=== PATIENT | female | born 1960 | race Caucasian/White ===

== ENCOUNTER → 2017-11-07 10:10 | Outpatient (CLI) | payer BC, SELFPAY ==
[2017-11-07 12:56] LABS: AST(SGOT) 25 U/L (15-37); Alanine Aminotransfer ALT/SGPT 28 U/L (13-56); Anion Gap 9 (5-15); BUN 8 mg/dL (7-18); BUN/Creat Ratio 10.2 RATIO (10-20); Chloride 107 mmol/L (98-107); Cholesterol 142 mg/dL (200); Creatinine, Serum 0.78 mg/dL (0.55-1.02); EST Glomerular Filtration Rate 80 mL/min (>60); Est Glom Filt Rate - Afr Amer 97 mL/min (>60); Glucose 75 mg/dL (74-106); High Density Lipoprotein 49 mg/dL; Potassium 3.8 mmol/L (3.5-5.1); Sodium Level 141 mmol/L (136-145); Triglycerides 104 mg/dL; Very Low Density Lipoprotein 21 mg/dL (5-40)
== END ==
PROVIDERS: Family Provider Family Medicine; PCP Family Medicine; Visit Provider Family Medicine
DX: I10 Essential (primary) hypertension (principal); E78.5 Hyperlipidemia, unspecified
CPT/HCPCS: 36415; 80048; 80061; 84450; 84460

== ENCOUNTER → 2018-06-17 09:48 | Outpatient (CLI) | payer BC, SELFPAY ==
--- NOTE | 2018-06-17 10:00 | BI_ITS ---
MAMMOGRAPHY - BILATERAL SCREENING REASON FOR EXAM: Female, 57 years old. Routine annual screening examination. PERTINENT HISTORY: Aunt with breast cancer. TECHNIQUE: Digital bilateral breast lou (3D mammographic acquisition) in the CC and MLO projections. 2-D mediolateral oblique (MLO) and craniocaudad (CC) views of both breasts were obtained. CAD: Full Field Digital Mammography with Computer Added Detection was performed. COMPARISON: Comparison is made with prior study dated March 13, 2017 July 08, 2015. FINDINGS: Breast Composition: The breasts are heterogeneously dense, which may obscure small masses. There are no dominant masses or suspicious calcifications. Stable small bilateral benign appearing axillary lymph nodes. No other significant abnormalities are identified. There has been no significant change since the prior study. BI/SCREENING MAMM (CAD), BILAT IMPRESSION: Stable bilateral screening mammogram. Yearly follow-up mammogram recommended. (A) ASSESSMENT CATEGORY: BIRADS Category 2: Benign. A letter regarding these results will be sent to the patient by the facility within 30 days. Approximately 10% of breast cancers are not detected by mammography. A normal mammogram should not delay biopsy of a clinically suspicious abnormality. [id number] Electronically Signed: Jv Araya MD at 13:12 EST Tel [phone], Service support ,
== END ==
PROVIDERS: Family Provider Family Medicine; PCP Family Medicine; Referring Provider Obstetrics & Gynecology; Visit Provider Obstetrics & Gynecology
DX: Z12.31 Encounter for screening mammogram for malignant neoplasm of breast (principal)
CPT/HCPCS: 77063; 77067

== ENCOUNTER → 2018-11-11 | Outpatient (CLI) | payer BC, SELFPAY ==
[2018-11-11 12:31] LABS: BUN 6 mg/dL (7-18); Creatinine, Serum 0.76 mg/dL (0.55-1.02); Glucose 80 mg/dL (74-106)
[2018-11-11 12:32] LABS: AST(SGOT) 24 U/L (15-37); Alanine Aminotransfer ALT/SGPT 37 U/L (13-56); Anion Gap 8 (5-15); BUN/Creat Ratio 7.9 RATIO (10-20); Calcium,Total 9.1 mg/dL (8.5-10.1); Chloride 109 mmol/L (98-107); Cholesterol 167 mg/dL (200); EST Glomerular Filtration Rate 82 mL/min (>60); Est Glom Filt Rate - Afr Amer 100 mL/min (>60); High Density Lipoprotein 50 mg/dL; Potassium 3.9 mmol/L (3.5-5.1); Sodium Level 142 mmol/L (136-145); Triglycerides 185 mg/dL; Very Low Density Lipoprotein 37 mg/dL (5-40)
== END | disposition home or self-care (01) ==
LOC: MFPLAB 10:29
PROVIDERS: Family Provider Family Medicine; PCP Family Medicine; Referring Provider Family Medicine; Visit Provider Family Medicine
DX: E78.00 Pure hypercholesterolemia, unspecified (principal); I10 Essential (primary) hypertension
CPT/HCPCS: 36415; 80048; 80061; 84450; 84460

== ENCOUNTER → 2019-11-18 09:44 | Outpatient (CLI) | payer BC, SELFPAY ==
[2019-11-18 12:12] LABS: AST(SGOT) 23 U/L (15-37); Alanine Aminotransfer ALT/SGPT 26 U/L (13-56); Anion Gap 11 (5-15); BUN 12 mg/dL (7-18); BUN/Creat Ratio 14.2 RATIO (10-20); Chloride 109 mmol/L (98-107); Cholesterol 158 mg/dL (200); Creatinine, Serum 0.85 mg/dL (0.55-1.02); EST Glomerular Filtration Rate 73 mL/min (>60); Est Glom Filt Rate - Afr Amer 88 mL/min (>60); Glucose 82 mg/dL (74-106); High Density Lipoprotein 52 mg/dL; Potassium 3.9 mmol/L (3.5-5.1); Sodium Level 142 mmol/L (136-145); Triglycerides 122 mg/dL; Very Low Density Lipoprotein 24 mg/dL (5-40)
== END ==
PROVIDERS: PCP Family Medicine; Visit Provider Family Medicine
DX: E78.00 Pure hypercholesterolemia, unspecified (principal); I10 Essential (primary) hypertension
CPT/HCPCS: 36415; 80048; 80061; 84450; 84460

== ENCOUNTER 2020-05-24 10:52 | Observation (INO) | payer BC, SELFPAY ==
[2020-05-24] VITALS (9 sets, daily range): BP systolic 112–162; BP diastolic 64–89; PULSE 52–61; RESP 13–17; TEMP 36–36.9; O2SAT 97–99; BMI 30.1; BMI 30.3
--- NOTE | 2020-05-24 11:27 | EKG12_ITS ---
Test Reason : CP Blood Pressure : / mmHG Vent. Rate : 059 BPM Atrial Rate : 059 BPM P-R Int : 212 ms QRS Dur : 080 ms QT Int : 400 ms P-R-T Axes : 051 046 049 degrees QTc Int : 396 ms Sinus bradycardia with 1st degree A-V block Low voltage QRS Borderline ECG Confirmed by HONORIO SCHWARTZ, WOJCIECH ([id number]), newspaper editor managing KUSH SHRESTHA ([id number]) on 05/25/2020 1:02:50 PM Referred By: TOSHIA Confirmed By:WOJCIECH OLMEDO MD
--- NOTE | 2020-05-24 11:27 | ED.DCSUM_ITS ---
History of Present Illness Chief Complaint: Chest Pain Informant: Patient Onset: Today Activity at onset: - - woke her up at 0400 Timing: Intermittent, Lasts - about an hour Quality: Pain - severe pain Location: Left Chest - without radiation Current Severity: Gone Maximum Severity: Severe Worsened By: Nothing Relieved By: Nothing - in particular Associated Symptoms: Lightheadedness. Negative for: Nausea, Vomiting, Diaphoresis, Dyspnea, Cough, Fever, Palpitations Narrative: Patient states she has been having some mild aching in her left chest off and on the last couple days. She does not remember any of this being exertional or pleuritic. This morning she had severe left chest pain that woke her up from sleep. It was nonpleuritic and gone before being seen by her PCP this morning for this, she had an EKG in the office that appeared abnormal and as a result was sent to the ER for further evaluation. Patient states she has had no recurrence of her discomfort. She has no known history of heart disease, she is a non-smoker. She has a brother who at age 46 of a heart attack. - Past Medical History (1) Hypertension Status: Chronic (2) Hyperlipidemia Status: Chronic Past Medical History - Allergies and Home Meds Allergies/Adverse Reactions: Allergies No Known Allergies Allergy (Verified 05/24/20 10:53) Primary Care Physician: Anny Gordon MD [Primary Care Provider] - Lives: Alone Smoking Status: Unknown if ever smoked Review of Systems General: Reports: Malaise. Denies: Chills, Fever, Sweats Eyes: Denies: Visual changes - bilaterally, Diplopia ENT: Denies: Rhinorrhea, Sore throat Cardiovascular: Reports: Chest pain. Denies: Palpitations Respiratory: Denies: Dyspnea, Cough, Dyspnea on exertion Gastrointestinal: Denies: Abdominal pain, Nausea, Vomiting, Diarrhea, Melena, Hematochezia Genitourinary: Denies: Dysuria, Hematuria, Frequency Musculoskeletal: Denies: Myalgias, Back pain, Swelling, Extremity Pain Skin: Denies: Rash, Wounds Neurological: Denies: Headache, Weakness, Numbness Physical Exam Vital Signs/Narrative: Vital Signs Temp Pulse Resp BP Pulse Ox 05/24/20 10:55 96.8 F L 56 L 17 153/78 H 99 Inital Vital Signs reviewed: Yes General: Well nourished, Well developed, No Acute Distress Head: Normocephalic, Atraumatic Eyes: Perrl, EOMI ENT: Moist mucous membranes, No rhinorrhea Neck: Supple, Nontender, No JVD Cardiovascular: Regular rate, Regular rhythm, No murmurs Respiratory: No distress, CTA bilaterally, Chest nontender Abdomen: Soft, Nontender, Nondistended, Normal bowel sounds Back: Nontender, Normal Inspection Extremities: Nontender, No edema. Negative for: Calf Tenderness Skin: Normal color, No rash, No Trauma Neurological: Alert, Oriented x3, Cranial nerves II-XII grossly intact, Normal Strength, Normal Sensation, Normal Gait Psychological: Normal affect, Normal Mood Diagnostic/Tx/Re-eval Impressions Chest X-Ray 05/24/20 11:27 IMPRESSION: Hyperinflation. The lungs are clear. Electronically Signed: Jv Marshal, at 12:17 EST , Service support , 05/24/20 11:27 Chest 1 View (Portable) [RAD] Stat Laboratory Results 05/24/20 05/24/20 11:30 11:30 WBC 8.3 RBC 4.70 Hgb 14.1 Hct 44.9 MCV 95.5 MCH 30.0 MCHC 31.4 L RDW Std Deviation 45.6 H RDW Coeff of Syeda 13.0 Plt Count 257 MPV 10.9 Immature Gran % (Auto) 0.200 Neut % (Auto) 69.1 Lymph % (Auto) 23.1 [place] % (Auto) 4.7 Eos % (Auto) 2.2 Baso % (Auto) 0.7 Absolute Neuts (auto) 5.8 Absolute Lymphs (auto) 1.93 Nucleated RBC % 0 Sodium 140 Potassium 4.5 Chloride 108 H Carbon Dioxide 27.0 Anion Gap 5 BUN 8 Creatinine 0.76 Estim Creat Clear Calc 67.13 Est GFR (MDRD) Af Amer 99 Est GFR (MDRD) Non-Af 82 BUN/Creatinine Ratio 10.5 Glucose 99 Calcium 8.6 Troponin I < 0.015 - Rhythm Strip Rhythm Strip: Sinus Rhythm Rate: 60 Ectopy: None - EKG Initial EKG Interpretation: Sinus Rhythm, No Acute Injury Pattern, AV Block - 1st deg Prior: Unchanged - Compared with one earlier today in the office which appears normal 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 HEART score = 1,0,1,2,0 = 4. Patient remained pain-free. She prefers to stay in the hospital to get a stress test done sooner rather than get it as an outpatient, so will admit to observation. ED Disposition - Plan for ED Patient: Disposition: Acute Care Hospital [facility] Diagnosis: Chest pain, unspecified Referrals: Anny Gordon MD [Primary Care Provider] -
--- NOTE | 2020-05-24 11:27 | RAD_ITS ---
STUDY: X-RAY CHEST REASON FOR EXAM: Female, 59 years old. Sudden onset CP 4am this morning TECHNIQUE: Single AP portable view of the chest. COMPARISON: Comparison is made with prior study dated 09/24/2014. FINDINGS: EKG electrodes are seen. Hyperinflation. The lungs are clear. There is no demonstrated pleural abnormality. Normal size heart. Normal mediastinum and jose. Normal visualized pulmonary arteries. There is atherosclerotic calcification of the aortic arch with tortuosity. There are degenerative changes of the visualized thoracic spine. Normal visualized ribs, clavicles, and shoulders. There is no demonstrated abnormality of the visualized soft tissue structures of the upper abdomen. RAD/Chest 1 View (Portable) IMPRESSION: Hyperinflation. The lungs are clear. Electronically Signed: Jv Araya, at 12:17 EST , Service support ,
[2020-05-24 11:46] LABS: Absolute Lymphocyte Count 1.93 X10^3/uL (0.83-4.51); Absolute Neutrophil Count 5.8 X10^3/uL (2.0-7.7); Basophil# 0.06 X10^3/uL; Basophil% 0.7 % (0-1); Eosinophil# 0.18 X10^3/uL; Eosinophils% 2.2 % (0-5); Hematocrit 44.9 % (37-47); Hemoglobin 14.1 g/dL (12.0-15.0); Lymphocyte # 1.93 X10^3/ul (4.0); Lymphocyte % 23.1 % (19-41); Mean Corp Hgb Conc 31.4 g/dL (32-36); Mean Corpuscular Volume 95.5 fL (81-99); Mean Platelet Vol. 10.9 fl (6.2-12.0); Monocyte# 0.39 X10^3/uL; Monocyte% 4.7 % (0-10); NRBC Flagged by Analyzer 0 % (0-5); Neutrophil # 5.76 X10^3/uL (2.7-7.7); Neutrophil % 69.1 % (47-70); Platelet Count 257 K/mm3 (150-450); RBC Distribution Width SD 45.6 fl (35.1-43.9); White Blood Count 8.3 K/mm3 (4.4-11.0)
[2020-05-24] MEDS: 0.9% Normal Saline 1,000 ML 150 ML IV (12:00)
[2020-05-24 12:11] LABS: Anion Gap 5 (5-15); BUN 8 mg/dL (7-18); BUN/Creat Ratio 10.5 RATIO (10-20); Calcium,Total 8.6 mg/dL (8.5-10.1); Chloride 108 mmol/L (98-107); Creatinine, Serum 0.76 mg/dL (0.55-1.02); EST Glomerular Filtration Rate 82 mL/min (>60); Est Glom Filt Rate - Afr Amer 99 mL/min (>60); Estimated Creatinine Clearance 67.13 ml/min; Glucose 99 mg/dL (74-106); Potassium 4.5 mmol/L (3.5-5.1); Sodium Level 140 mmol/L (136-145)
--- NOTE | 2020-05-24 13:16 | PCM.HP.STD ---
Problem List (1) Chest pain, unspecified Status: Acute (2) Hyperlipidemia Status: Chronic (3) Hypertension Status: Chronic History of Present Illness Date of Admission: 05/24/20 Chief Complaint: Chest pain The patient is a 59 year old F with history of hypertension and dyslipidemia came to ER with sudden onset of chest pain about 4 AM today. She felt like a squeezing sensation under her left breast, localized, 5-6/10 in intensity without exacerbating or relieving factor. This lasted for about an hour. She was given 4 tablets of aspirin 81 mg by EMS. In ED, EKG shows sinus bradycardia at 59 beats per old with first-degree AV block. Patient is on atenolol 50 mg p.o. twice daily at home. First troponin negative. Initial ED lab work unremarkable. Chest x-ray shows hyperinflation, lungs clear. Past Medical History Past Medical History (Chronic Problems): Chronic Problems Hypertension (Chronic) Hyperlipidemia (Chronic) Allergies No Known Allergies Allergy (Verified 05/24/20 10:53) Home Medications: Ambulatory Orders Medication Instructions Recorded Atenolol [Tenormin (beta aminta)] 50 mg PO BID 07/01/14 Atorvastatin Calcium [Lipitor] 20 mg PO QHS 07/01/14 Lives: Alone Smoking Status: Unknown if ever smoked - *Family History Paternal History Items: Stroke - Hemorrhagic stroke and he Sibling History Items: Heart Disease - Coronary artery disease/[place] Review of Systems Constitutional: Denies: Chills, Fever, Weight Change HEENT: Denies: Head Aches, Sinus Congestion, Sinus Drainage Cardiovascular: Reports: Chest Pain, Chest Pressure. Denies: Palpitations Respiratory: Denies: Cough, Shortness of breath at rest, Sputum production Gastrointestinal: Denies: Abdominal Pain, Nausea, Vomiting Genitourinary: Denies: Dysuria, Frequency Gynecological: Reports: - - Vaginal dryness and menopausal symptoms. Denies dysuria, increased frequency/urgency or UTI-like symptoms Musculoskeletal: Denies: Joint Pain, Joint Tenderness Skin: Denies: Rash, Wounds Neurological: Denies: Numbness, Tingling, Focal weakness Psychiatric: Denies: Anxiety, Depression, Homicidal Ideations, Suicidal Ideations Hematologic/ Lymphatic: Denies: Easy Bruising, Easy Bleeding VTE Information - Inpt Only VTE Present on Admission: No VTE Mechan Device Prophylaxis: None VTE Pharm Prophylaxis ordered?: Yes Patient Problems: Active and Suspected Problems Chest pain, unspecified (Acute) - Physical Exam Vitals/I&O's: Vital Signs Temp Pulse Resp BP Pulse Ox 98.0 F 59 L 16 156/89 H 98 05/24/20 13:15 05/24/20 13:15 05/24/20 13:15 05/24/20 13:15 05/24/20 13:15 Oxygen Delivery Method Room Air Weight: 177 lb 14.609 oz Body Mass Index (BMI) 30.0 General: Alert, Oriented x3, Cooperative HEENT: Atraumatic, PERRLA, EOMI, Normocephalic Neck: Supple, No JVD, Negative Carotid Bruits Lungs: Clear to auscultation, Normal air movement, No rhonchi, No wheeze, No rales Cardiovascular: Regular Rhythm, Normal S1, Normal S2, No murmurs, Bradycardic Abdomen: Bowel Sounds Present, Soft, Non Tender Extremities: No edema, Capillary Refill Less than 3 Seconds Skin: No rashes, No breakdown Musculoskeletal: No Tenderness to Palpation of Joints or Extremities Neurological: Cranial nerves II-XII grossly intact, Deep Tendon Reflexes 2+/4 and Symmetrical, Neuro grossly intact, Motor Exam 5/5 strength throughout Psych/Mental Status: Normal Affect, Appropriate Laboratory Results 05/24/20 11:30: WBC 8.3, RBC 4.70, Hgb 14.1, Hct 44.9, MCV 95.5, MCH 30.0, MCHC 31.4 L, RDW Std Deviation 45.6 H, RDW Coeff of Syeda 13.0, Plt Count 257, MPV 10.9, Immature Gran % (Auto) 0.200, Neut % (Auto) 69.1, Lymph % (Auto) 23.1, [place] % (Auto) 4.7, Eos % (Auto) 2.2, Baso % (Auto) 0.7, Absolute Neuts (auto) 5.8, Absolute Lymphs (auto) 1.93, Nucleated RBC % 0 05/24/20 11:30: Sodium 140, Potassium 4.5, Chloride 108 H, Carbon Dioxide 27.0, Anion Gap 5, BUN 8, Creatinine 0.76, Estim Creat Clear Calc 67.13, Est GFR (MDRD) Af Amer 99, Est GFR (MDRD) Non-Af 82, BUN/Creatinine Ratio 10.5, Glucose 99, Calcium 8.6, Troponin I < 0.015 Current Medications Sodium Chloride () 1,000 mls @ 150 mls/hr IV [id number] Last Admin: 05/24/20 12:00 Dose: 150 mls/hr Documented by: Assessment/Plan All Active Problems Chest pain, unspecified (Acute) The patient is a 59 year old F with history of hypertension and dyslipidemia came to ER with sudden onset of chest pain about 4 AM today with suspicion of unstable angina. In ED, EKG shows sinus bradycardia at 59 beats per old with first-degree AV block. 1. Atypical chest pain, possible unstable angina: Patient is being admitted in PCU. Serial troponin enzymes and EKG. On school lunch monitor. If tropes negative, treadmill nuclear stress test tomorrow a.m. 2. Sinus bradycardia with first-degree AV block probably high-dose of atenolol: Hold atenolol. Patient at home on 1250 mg p.o. twice daily. 3. Hypertension: Blood pressure is elevated 159/89. Start her on the low-dose of lisinopril. 4. Dyslipidemia: Fasting profile tomorrow a.m. Continue atorvastatin 20 mg daily. VTE prophylaxis: Lovenox 40 mg daily Clinical Impression(s) from Imaging Studies Chest X-Ray 05/24/20 11:27 IMPRESSION: Hyperinflation. The lungs are clear. OBSV E&M: [id number] Initial observation care L3
--- NOTE | 2020-05-24 15:07 | EKG12_ITS ---
Test Reason : AM EKG Blood Pressure : / mmHG Vent. Rate : 057 BPM Atrial Rate : 057 BPM P-R Int : 202 ms QRS Dur : 078 ms QT Int : 416 ms P-R-T Axes : 067 051 050 degrees QTc Int : 404 ms Sinus bradycardia Low voltage QRS Borderline ECG Confirmed by HONORIO SCHWARTZ, WOJCIECH ([id number]), newspaper editor managing ALEJANDRO ORTIZ ([id number]) on 05/26/2020 1:56:11 PM Referred By: FATUMA Confirmed By:WOJCIECH OLMEDO MD
[2020-05-24 16:22] LABS: Magnesium 2.3 mg/dL (1.6-2.6)
[2020-05-24] MEDS: Lisinopril 10 MG Tablet PO (17:19)
[2020-05-24] MEDS: Atorvastatin Calcium 20 MG Tablet PO (21:34)
[2020-05-24] MEDS: Famotidine 20 MG Tablet PO (21:34)
[2020-05-25 02:25] VITALS: BP 107/58; PULSE 58; RESP 16; TEMP 37; O2SAT 96
[2020-05-25 03:00] VITALS: PULSE 53
--- NOTE | 2020-05-25 05:55 | EKG12_ITS ---
Test Reason : Blood Pressure : / mmHG Vent. Rate : 055 BPM Atrial Rate : 055 BPM P-R Int : 208 ms QRS Dur : 076 ms QT Int : 414 ms P-R-T Axes : 052 050 045 degrees QTc Int : 396 ms Sinus bradycardia Low voltage QRS Borderline ECG Confirmed by HONORIO SCHWARTZ, WOJCIECH ([id number]), art editor ALEJANDRO ORTIZ ([id number]) on 05/26/2020 1:58:31 PM Referred By: SCOTT Confirmed By:WOJCIECH OLMEDO MD
[2020-05-25 06:20] VITALS: BP 129/66; PULSE 63; RESP 17; TEMP 36.9; O2SAT 97
[2020-05-25] MEDS: Aspirin E.C. 81 MG Tablet PO (06:21)
[2020-05-25] MEDS: Lisinopril 10 MG Tablet PO (06:21)
[2020-05-25 06:51] VITALS: PULSE 65
[2020-05-25 06:51] LABS: Cholesterol 139 mg/dL (200); High Density Lipoprotein 46 mg/dL; Triglycerides 124 mg/dL; Very Low Density Lipoprotein 25 mg/dL (5-40)
[2020-05-25 07:08] VITALS: O2SAT 98
--- NOTE | 2020-05-25 09:45 | STRESSREP_ITS ---
Stress Test Report Date: 05-25-2020 Procedure: Exercise tolerance test/imaging study Indications: Chest pain; shortness of breath/dyspnea Consent: Per the patient Procedure: The patient exercised on a Keith protocol for 5 minutes completing Stage I and 2 minutes of Stage II achieving a peak heart rate of 200 bpm (125% predicted maximal heart rate) with a peak blood pressure 200/90 mmHg and a peak MET capacity of 7 METs. The baseline ECG demonstrated sinus rhythm. The peak exercise ECG demonstrated with no obvious ECG changes. The cardiac rhythm demonstrated sinus tachycardia with PACs during exercise and recovery with notation of an atrial couplets/triplets during recovery. The functional capacity was considered decreased. There was no complaint of chest discomfort during exercise or recovery. The examination was discontinued secondary to dyspnea. Impression: 1. Technically adequate (percent predicted maximal heart rate greater than 85%) exercise tolerance test 2. Peak exercise ECG with no obvious ECG changes 3. The cardiac rhythm demonstrated sinus tachycardia with PACs during exercise and recovery with notation of an atrial couplet/triplet during recovery 4. Nuclear images pending Myocardial perfusion imaging study: Technique: The patient was injected with 12.0 mCi of technetium 99m Cardiolite and subsequently rest SPECT Cardiolite nuclear imaging was obtained in the horizontal long, vertical long, and short axis views. The patient exercised on a Keith protocol for 5 minutes completing Stage I and 2 minutes of Stage II achieving a peak heart rate of 200 bpm (125% predicted maximal heart rate) with a peak blood pressure 200/90 mmHg and a peak MET capacity of 7 METs. The patient was injected with 33.8 mCi of technetium 99m Cardiolite and subsequently stress SPECT Cardiolite nuclear imaging was obtained in the horizontal long, vertical long, and short axis views. A gated Cardiolite study at peak stress was obtained. Interpretation: Rest and stress SPECT Cardiolite nuclear imaging status post realignment, normalization, and attenuation correction, demonstrates relative uniform tracer uptake and myocardial perfusion appearing within normal limits. There is end systolic thickening and brightening. The gated Cardiolite study demonstrates myocardial thickening and inward wall motion. The reported LVEF is 85%. Impression: 1. Relative uniform tracer uptake and myocardial perfusion appearing within normal limits. 2. The gated Cardiolite study reports an LVEF of 85%. This note was generated with [employer] software. It may contain incorrect words, spelling, and punctuation that were not noted in checking the note before signing.
[2020-05-25] MEDS: Famotidine 20 MG Tablet PO (10:20)
--- NOTE | 2020-05-25 11:55 | PCM.DC ---
- Discharge Diagnoses Current Active Problems: Current Active and Chronic Problems Hypertension (Chronic) Hyperlipidemia (Chronic) Chest pain, unspecified (Acute) You will use the following diet at home:: Cardiac Your food should be the consistency of: Regular Discharge Activity: Return to Normal Activity Call your doctor if you observe: Fever of 101 or Higher, Numbness or Tingling, Change in Color, Inability to urinate, Inability to have a bowel movement, Shortness of breath, Dizziness, Fainting spells, Swelling in the ankles, Chest pain, Prolonged hiccoughing, Increased palpitations (irregular heartbeat), Calf discomfort, Uncontrolled pain Additional Instructions: Hold metoprolol if heart rate is less than 60/min or systolic blood pressure less than 90 mmHg. Hold lisinopril if systolic blood pressure less than 120 mmHg Allergies/Adverse Reactions: Allergies No Known Allergies Allergy (Verified 05/24/20 10:53) Medications to take at Discharge Atorvastatin Calcium [Lipitor] 20 mg PO DAILY 07/01/14 Aspirin [Aspirin EC] 162 mg PO DAILY PRN PRN 05/24/20 Multivitamin [Multivitamins] 1 tab PO DAILY 05/24/20 Lisinopril [Zestril] 10 mg PO DAILY #30 tab 05/25/20 Metoprolol Tartrate 12.5 mg PO BID #30 tab 05/25/20 The following prescriptions were given: Metoprolol Tartrate 12.5 mg PO BID #30 tab Transmission Status: Pending to [facility] Lisinopril [Zestril] 10 mg PO DAILY #30 tab Transmission Status: Pending to [facility] Primary Care Physician: Anny Gordon MD [Primary Care Provider] - Please follow up with your Primary Care Physician in: In 2 weeks Test Results: Test results from this visit will be discussed in further detail at your follow-up appointment, if applicable.
[2020-05-25 12:01] VITALS: BP 139/75; PULSE 78; RESP 18; TEMP 36.8; O2SAT 96
--- NOTE | 2020-05-25 12:02 | DS.PCM_ITS ---
Discharge Date and Diagnosis - Problem List Patient Problems: Active and Suspected Problems Chest pain, unspecified (Acute) Date of Admission: 05/24/20 Date of Discharge: 05/25/20 - Primary Discharge Diagnosis Acute Problems: Active Problems Chest pain, unspecified (Acute) - Secondary Discharge Diagnosis Chronic Problems: Chronic Problems Hypertension (Chronic) Hyperlipidemia (Chronic) Hospital Course and Treatment Imaging Results: 05/25/20 05:55 Nuclear Stress Test - Treadmil [NM] AM (NON MEDS) Summary of Care Provided: The patient is a 59 year old F history of hypertension dyslipidemia was admitted with sudden onset of chest pain. EKG shows sinus bradycardia at 59 bpm with first-degree block mainly due to high dose of Atenol 50 mg p.o. twice daily at home. She was admitted in PCU. Beta-aminta atenolol was held. Serial troponin enzymes were negative. Repeat EKG was also similar to first EKG with no specific signs for ischemia. library monitor shows usually heart rate about 65/min with intermittent tachycardia heart rate 100-110/min. Patient had treadmill nuclear stress test and reported myocardial perfusion within normal limit. Cardiolite study EF 85 percent. Patient is being discharged home. At large discontinued. Started on low-dose metoprolol 12.5 mg p.o. twice daily with holding parameters if heart rate less than 60/min. Blood pressure is elevated therefore started on lisinopril 10 mg daily. Heart rate and blood pressure controlled Discharge medication reconciliation done. Discharge follow-up instructions completed. Discharge process discussed with the patient and all questions were answered to patient's satisfaction. Total time spent, exact 35 minutes on discharge meds reconciliation, examination, coordination of care with nurses and ancillary staff, review of imaging and blood test and discussion with the patient on follow-up instructi ons [] Patient Problems: Active and Suspected Problems Chest pain, unspecified (Acute) Objective: Seen and examined. Patient does not have any chest pain or shortness of breath. On treadmill she felt mild short of breath or chest heaviness but she was wearing mask. Physical exam General: Alert, Oriented x3, Cooperative HEENT: Atraumatic, PERRLA, EOMI, Normocephalic Oral: No Gingival or Mucosal Lesions/ Ulcerations Neck: Supple, No JVD, Negative Carotid Bruits Lungs: Air entry equal in bilateral lung bases. No crepitation/rhonchi Cardiovascular: Regular rate, Regular Rhythm, Normal S1, Normal S2, No murmurs Abdomen: Bowel Sounds Present, Soft, Non Tender, Non-Distended : No renal angle tenderness. No suprapubic tenderness. Extremities: No edema, Capillary Refill Less than 3 Seconds Skin: No rashes, No breakdown Musculoskeletal: No Tenderness to Palpation of Joints or Extremities Neurological: Cranial nerves II-XII grossly intact, Deep Tendon Reflexes 2+/4 and Symmetrical, Neuro grossly intact Psych/Mental Status: Normal Affect, Appropriate. - Physical Exam Vitals/I&O's: Vital Signs Temp Pulse Resp BP Pulse Ox 98.2 F 78 18 139/75 H 96 05/25/20 12:01 05/25/20 12:01 05/25/20 12:01 05/25/20 12:01 05/25/20 12:01 Oxygen Delivery Method Room Air Weight: 176 lb 9.6 oz Body Mass Index (BMI) 30.3 Intake and Output for Last 24 Hours 05/23/20 05/24/20 05/25/20 23:59 23:59 23:59 Intake Total 1820 / 1820 0 / 0 Output Total 250 / 250 Balance 1570 / 1570 0 / 0 Laboratory Results 05/24/20 11:30: Sodium 140, Potassium 4.5, Chloride 108 H, Carbon Dioxide 27.0, Anion Gap 5, BUN 8, Creatinine 0.76, Estim Creat Clear Calc 67.13, Est GFR (MDRD) Af Amer 99, Est GFR (MDRD) Non-Af 82, BUN/Creatinine Ratio 10.5, Glucose 99, Calcium 8.6, Troponin I < 0.015 05/24/20 11:30: Magnesium 2.3 05/24/20 16:28: Troponin I < 0.015 05/24/20 19:11: Troponin I < 0.015 05/25/20 06:00: Triglycerides 124, Cholesterol 139, LDL Cholesterol 68, VLDL Cholesterol 25, HDL Cholesterol 46 Current Medications Acetaminophen (Acetaminophen 325 Mg Tablet) 650 mg PO Q6H PRN PRN PRN Reason: Pain Score 1-10/Temp > 100.7 F Al Hydroxide/Mg Hydroxide (Mag Hydrox/Al Hydrox/Simeth 30 Ml Udc) 30 ml PO Q6H PRN PRN PRN Reason: Gastric Burning Albuterol Sulfate (Albuterol 2.5 Mg/3 Ml Vial.Neb.) 2.5 mg INHALATION Q2H PRN PRN PRN Reason: SOB/Wheezing Aspirin (Aspirin E.C. 81 Mg Tablet) 81 mg PO DAILY@0800 [facility] Last Admin: 05/25/20 06:21 Dose: 81 mg Documented by: Atorvastatin Calcium (Atorvastatin Calcium 20 Mg Tablet) 20 mg PO QHS [facility] Last Admin: 05/24/20 21:34 Dose: 20 mg Documented by: Enoxaparin Sodium (Enoxaparin 40 Mg/0.4 Ml Syringe) 40 mg SC DAILY [facility] Famotidine (Famotidine 20 Mg Tablet) 20 mg PO BID [facility] Last Admin: 05/25/20 10:20 Dose: 20 mg Documented by: Lisinopril (Lisinopril 10 Mg Tablet) 10 mg PO DAILY [facility] Last Admin: 05/25/20 06:21 Dose: 10 mg Documented by: Melatonin (Melatonin 3 Mg Tablet) 3 mg PO QHS PRN PRN PRN Reason: INSOMNIA Morphine Sulfate (Morphine 2 Mg/Ml Syringe) 2 mg IV Q3H PRN PRN PRN Reason: Pain Score 6-10 Nitroglycerin (Nitroglycerin (Inpatient Use) 0.4 Mg Tab.Subl) 0.4 mg SUBLINGUAL Q5M PRN PRN Reason: CARDIAC/CHEST PAIN Oxycodone HCl (Oxycodone 5 Mg Tablet) 5 mg PO Q4H PRN PRN PRN Reason: Pain Score 4-5 Prochlorperazine Edisylate (Prochlorperazine 10 Mg/2 Ml Vial) 5 mg IV Q4H PRN PRN PRN Reason: Breakthrough Nausea/Vomiting Psyllium Hydrophilic Mucilloid (Psyllium 1 Packet) 1 packet PO DAILY PRN PRN PRN Reason: Constipation Sodium Chloride (0.9% Saline Lock 10 Ml Syringe) 10 - 40 ml IV UD PRN PRN Reason: SALINE FLUSH Discharge Activity: Return to Normal Activity Call your doctor if you observe: Fever of 101 or Higher, Numbness or Tingling, Change in Color, Inability to urinate, Inability to have a bowel movement, Shortness of breath, Dizziness, Fainting spells, Swelling in the ankles, Chest pain, Prolonged hiccoughing, Increased palpitations (irregular heartbeat), Calf discomfort, Uncontrolled pain Home Medications: Medications to take at Discharge Atorvastatin Calcium [Lipitor] 20 mg PO DAILY 07/01/14 Aspirin [Aspirin EC] 162 mg PO DAILY PRN PRN 05/24/20 Multivitamin [Multivitamins] 1 tab PO DAILY 05/24/20 Lisinopril [Zestril] 10 mg PO DAILY #30 tab 05/25/20 Metoprolol Tartrate 12.5 mg PO BID #30 tab 05/25/20 Following Prescriptions Were Given to Patient: Metoprolol Tartrate 12.5 mg PO BID #30 tab Transmission Status: Pending to [facility] Lisinopril [Zestril] 10 mg PO DAILY #30 tab Transmission Status: Pending to [facility] Primary Care Physician: Anny Gordon MD [Primary Care Provider] - Please follow up with your Primary Care Physician in: In 2 weeks Medical Necessity - Tobacco Use Smoking Status: Unknown if ever smoked Tobacco Use: Non-smoker Meaningful Use Info Meaningful Use Diagnoses (Choose all that apply): None applicable OBSV E&M: 16380 Observation care discharge
== END 2020-05-25 12:37 | disposition home health service (06) ==
LOC: ED 11:37 → PCU 13:21
PROVIDERS: Admitting Provider Internal Medicine; Emergency Provider Emergency Medicine; PCP Family Medicine; Visit Provider Internal Medicine
DX: R07.89 Other chest pain (principal); R42 Dizziness and giddiness; Z82.49 Family history of ischemic heart disease and other diseases of the circulatory system; I10 Essential (primary) hypertension; E78.5 Hyperlipidemia, unspecified; Z79.899 Other long term (current) drug therapy; Z79.82 Long term (current) use of aspirin; I44.0 Atrioventricular block, first degree; R00.1 Bradycardia, unspecified
CPT/HCPCS: 36415; 71045; 78452; 80048; 80061; 83735; 84484; 85025; 93005; 93017; 96360; 96361; 99218; 99285; A9500; J7030; A4216; G0378

== ENCOUNTER → 2020-06-22 15:07 | Outpatient (CLI) | payer BC, SELFPAY ==
[2020-05-24 14:37] VITALS: BMI 30.3
--- NOTE | 2020-06-22 15:19 | BI_ITS ---
MAMMOGRAPHY - BILATERAL SCREENING REASON FOR EXAM: Female, 59 years old. Routine annual screening examination. PERTINENT HISTORY: Aunt with breast cancer. TECHNIQUE: Digital bilateral breast harpreet (3D mammographic acquisition) in the CC and MLO projections. 2-D mediolateral oblique (MLO) and craniocaudad (CC) views of both breasts were obtained. CAD: Full Field Digital Mammography with Computer Added Detection was performed. COMPARISON: Comparison is made with prior study dated 06/17/2018 and 03/13/2017. FINDINGS: Breast Composition: The breasts are heterogeneously dense, which may obscure small masses. There are no dominant masses or suspicious calcifications. Stable benign-appearing bilateral axillary lymph nodes. No other significant abnormalities are identified. There has been no significant change since the prior study. BI/SCREEN MAMM (CAD) W/HARPREET BILAT IMPRESSION: Stable bilateral screening mammogram. Yearly follow-up mammogram recommended. (A) ASSESSMENT CATEGORY: BIRADS Category 2: Benign. A letter regarding these results will be sent to the patient by the facility within 30 days. Approximately 10% of breast cancers are not detected by mammography. A normal mammogram should not delay biopsy of a clinically suspicious abnormality. [id number] Electronically Signed: Jv Araya, at 15:58 EST , Service support ,
== END ==
PROVIDERS: PCP Family Medicine; Referring Provider Obstetrics & Gynecology; Visit Provider Obstetrics & Gynecology
DX: Z12.31 Encounter for screening mammogram for malignant neoplasm of breast (principal)
CPT/HCPCS: 77063; 77067

== ENCOUNTER → 2020-11-16 10:03 | Outpatient (CLI) | payer BC, SELFPAY ==
[2020-05-24 14:37] VITALS: BMI 30.3
[2020-11-16 12:46] LABS: AST(SGOT) 14 U/L (15-37); Alanine Aminotransfer ALT/SGPT 21 U/L (13-56); Anion Gap 6 (5-15); BUN 12 mg/dL (7-18); BUN/Creat Ratio 14.8 RATIO (10-20); Calcium,Total 9.3 mg/dL (8.5-10.1); Chloride 107 mmol/L (98-107); Cholesterol 159 mg/dL (200); Creatinine, Serum 0.81 mg/dL (0.55-1.02); EST Glomerular Filtration Rate 76 mL/min (>60); Est Glom Filt Rate - Afr Amer 92 mL/min (>60); Glucose 86 mg/dL (74-106); High Density Lipoprotein 51 mg/dL; Potassium 3.7 mmol/L (3.5-5.1); Sodium Level 139 mmol/L (136-145); Triglycerides 143 mg/dL; Very Low Density Lipoprotein 29 mg/dL (5-40)
== END ==
PROVIDERS: PCP Family Medicine; Referring Provider Family Medicine; Visit Provider Family Medicine
DX: I10 Essential (primary) hypertension (principal); E78.00 Pure hypercholesterolemia, unspecified
CPT/HCPCS: 36415; 80048; 80061; 84450; 84460

== ENCOUNTER → 2021-07-07 10:43 | Outpatient (CLI) | payer BC, SELFPAY ==
--- NOTE | 2021-07-07 11:02 | BD_ITS ---
STUDY: DUAL ENERGY X-RAY ABSORPTIOMETRY / DXA REASON FOR EXAM: Female, 60 years old. [id number]. Patient is postmenopausal. TECHNIQUE: Bone Mineral Density (BMD) measurements of lumbar spine and bilateral hips were obtained. COMPARISON: None. FINDINGS: Lumbar Spine (L1-L4): g/cm2 (0.995) / T-score (-0.5) / Z-score (1.1) Findings are suggestive of normal bone density with a low fracture risk. Left Femur Total: g/cm2 (0.685) / T-score (-2.1) / Z-score (-1.0) Left Femoral Neck: g/cm2 (0.607) / T-score (-2.2) / Z-score (-0.8) Right Femur Total: g/cm2 (0.686) / T-score (-2.1) / Z-score (-1.0) Right Femoral Neck: g/cm2 (0.597) / T-score (-2.3) / Z-score (-0.9) BD/Dexa Bone Density Study IMPRESSION: The patient is considered osteopenic as outlined below according to World [employer] Organization (WHO) criteria with a high fracture risk. Reference Information: The T-score is the number of standard deviations above or below the standard which is normal for young adults at their peak bone mineral density. The World Health Organization (WHO) interprets the T-scores as follows: Above -1 Normal bone density Between -1 and -2.5 Osteopenia Equal to / or below -2.5 Osteoporosis As a practical clinical guideline, osteopenia may be graded as follows: Mild -1 through -1.5 Moderate -1.6 through -2.0 Severe -2.1 through -2.4 The Z-score is the number of standard deviations above or below age-matched controls. A Z-score of less than -1.5 would be considered abnormal. References: 1. NIH Osteoporosis and Related Bone Diseases www osteo.org 2. International Society for Clinical Densitometry www iscd.org 3. National Osteoporosis Foundation www nof.org Electronically Signed: Jv Araya MD at 10:57 EST , Service support ,
== END ==
PROVIDERS: PCP Family Medicine; Visit Provider Family Medicine
DX: N95.9 Unspecified menopausal and perimenopausal disorder (principal)
CPT/HCPCS: 77080

== ENCOUNTER 2021-10-10 09:54 | Outpatient (CLI) | payer BC, SELFPAY ==
--- NOTE | 2021-10-10 09:57 | BI_ITS ---
MAMMOGRAPHY - BILATERAL SCREENING REASON FOR EXAM: Female, 61 years old. Routine annual screening examination. PERTINENT HISTORY: Aunt with breast cancer. TECHNIQUE: Digital bilateral breast harpreet (3D mammographic acquisition) in the CC and MLO projections. 2-D mediolateral oblique (MLO) and craniocaudad (CC) views of both breasts were obtained. CAD: Full Field Digital Mammography with Computer Added Detection was performed. COMPARISON: Comparison is made with prior study dated 06/22/2020 and 06/17/2018. FINDINGS: Breast Composition: The breasts are heterogeneously dense, which may obscure small masses. There are no dominant masses or suspicious calcifications. Stable benign-appearing bilateral axillary lymph nodes. No other significant abnormalities are identified. There has been no significant change since the prior study. BI/SCRN MAMM (CAD)W/HARPREET BILAT IMPRESSION: Stable bilateral screening mammogram. Yearly follow-up mammogram recommended. (A) ASSESSMENT CATEGORY: BIRADS Category 2: Benign. A letter regarding these results will be sent to the patient by the facility within 30 days. Approximately 10% of breast cancers are not detected by mammography. A normal mammogram should not delay biopsy of a clinically suspicious abnormality. [id number] Electronically Signed: Jv Araya MD at 10:48 EDT ,
== END 2021-10-10 23:59 | disposition home or self-care (01) ==
LOC: OPBD 09:55
PROVIDERS: PCP Family Medicine; Visit Provider Family Medicine
DX: Z12.31 Encounter for screening mammogram for malignant neoplasm of breast (principal)
CPT/HCPCS: 77063; 77067

== ENCOUNTER → 2021-11-15 | Outpatient (CLI) | payer BC, SELFPAY ==
[2021-11-15 13:27] LABS: AST(SGOT) 17 U/L (15-37); Alanine Aminotransfer ALT/SGPT 24 U/L (13-56); Anion Gap 7 (5-15); BUN 12 mg/dL (7-18); BUN/Creat Ratio 16.2 RATIO (10-20); Calcium,Total 9.2 mg/dL (8.5-10.1); Chloride 108 mmol/L (98-107); Cholesterol 147 mg/dL (200); Creatinine, Serum 0.74 mg/dL (0.55-1.02); EST Glomerular Filtration Rate 84 mL/min (>60); Est Glom Filt Rate - Afr Amer 101 mL/min (>60); Glucose 92 mg/dL (74-106); High Density Lipoprotein 54 mg/dL; Sodium Level 140 mmol/L (136-145); Triglycerides 97 mg/dL; Very Low Density Lipoprotein 19 mg/dL (5-40)
== END | disposition home or self-care (01) ==
LOC: MFPLAB 09:49
PROVIDERS: PCP Family Medicine; Referring Provider Family Medicine; Visit Provider Family Medicine
DX: I10 Essential (primary) hypertension (principal); E78.00 Pure hypercholesterolemia, unspecified
CPT/HCPCS: 36415; 80048; 80061; 84450; 84460

== ENCOUNTER → 2022-11-21 | Outpatient (CLI) | payer BC, SELFPAY ==
[2022-11-21 13:10] LABS: AST(SGOT) 21 U/L (15-37); Alanine Aminotransfer ALT/SGPT 28 U/L (13-56); Anion Gap 8 (5-15); BUN 11 mg/dL (7-18); BUN/Creat Ratio 13.3 RATIO (10-20); Calcium,Total 9.3 mg/dL (8.5-10.1); Chloride 110 mmol/L (98-107); Cholesterol 156 mg/dL (200); Creatinine, Serum 0.83 mg/dL (0.55-1.02); EST Glomerular Filtration Rate 74 mL/min (>60); Est Glom Filt Rate - Afr Amer 89 mL/min (>60); Glucose 104 mg/dL (74-106); High Density Lipoprotein 52 mg/dL; Potassium 3.8 mmol/L (3.5-5.1); Sodium Level 141 mmol/L (136-145); Triglycerides 106 mg/dL; Very Low Density Lipoprotein 21 mg/dL (5-40)
== END | disposition home or self-care (01) ==
LOC: MFPLAB 09:51
PROVIDERS: PCP Family Medicine; Visit Provider Family Medicine
DX: E78.00 Pure hypercholesterolemia, unspecified (principal); I10 Essential (primary) hypertension
CPT/HCPCS: 36415; 80048; 80061; 84450; 84460

== ENCOUNTER → 2022-12-14 | Outpatient (CLI) | payer BC, SELFPAY ==
--- NOTE | 2022-12-14 14:09 | BI_ITS ---
MAMMOGRAPHY - BILATERAL SCREENING REASON FOR EXAM: Female, 62 years old. Routine annual screening examination. PERTINENT HISTORY: Aunt with breast cancer. TECHNIQUE: Digital bilateral breast harpreet (3D mammographic acquisition) in the CC and MLO projections. 2-D mediolateral oblique (MLO) and craniocaudad (CC) views of both breasts were obtained. CAD: Full Field Digital Mammography with Computer Added Detection was performed. COMPARISON: Comparison is made with prior study dated October 10, 2021 and June 22, 2020. FINDINGS: Breast Composition: The breasts are heterogeneously dense, which may obscure small masses. There are no dominant masses or suspicious calcifications. Stable small benign appearing bilateral axillary lymph nodes. No other significant abnormalities are identified. There has been no significant change since the prior study. BI/SCRN MAMM (CAD)W/HARPREET BILAT IMPRESSION: Stable bilateral screening mammogram. Yearly follow-up mammogram recommended. (A) ASSESSMENT CATEGORY: BIRADS Category 2: Benign. A letter regarding these results will be sent to the patient by the facility within 30 days. Approximately 10% of breast cancers are not detected by mammography. A normal mammogram should not delay biopsy of a clinically suspicious abnormality. [id number] Electronically Signed: Jv Araya MD at 14:53 EDT ,
== END | disposition home or self-care (01) ==
LOC: OPBI 14:07
PROVIDERS: PCP Family Medicine; Referring Provider Family Medicine; Visit Provider Family Medicine
DX: Z12.31 Encounter for screening mammogram for malignant neoplasm of breast (principal); Z80.3 Family history of malignant neoplasm of breast
CPT/HCPCS: 77063; 77067

== ENCOUNTER → 2023-11-20 | Outpatient (CLI) | payer MEDICARE, OTHER, SELFPAY ==
[2023-11-20 13:08] LABS: Protein, Urine (Random) < 6.0 mg/dL (<11.9)
[2023-11-20 13:21] LABS: AST(SGOT) 19 U/L (15-37); Alanine Aminotransfer ALT/SGPT 25 U/L (13-56); Anion Gap 4 (5-15); BUN 9 mg/dL (7-18); BUN/Creat Ratio 10.8 RATIO (10-20); Calcium,Total 9.2 mg/dL (8.5-10.1); Chloride 108 mmol/L (98-107); Cholesterol 129 mg/dL (200); Creatinine, Serum 0.84 mg/dL (0.55-1.02); EST Glomerular Filtration Rate 73 mL/min (>60); Est Glom Filt Rate - Afr Amer 88 mL/min (>60); Glucose 98 mg/dL (74-106); High Density Lipoprotein 44 mg/dL; Potassium 3.9 mmol/L (3.5-5.1); Sodium Level 139 mmol/L (136-145); Triglycerides 88 mg/dL; Very Low Density Lipoprotein 18 mg/dL (5-40)
== END | disposition home or self-care (01) ==
LOC: MFPLAB 09:37
PROVIDERS: PCP Family Medicine; Visit Provider Family Medicine
DX: I10 Essential (primary) hypertension (principal); E78.00 Pure hypercholesterolemia, unspecified
CPT/HCPCS: 36415; 80048; 80061; 82570; 84156; 84450; 84460

== ENCOUNTER → 2024-03-31 | Outpatient (CLI) | payer MEDICARE, OTHER, SELFPAY ==
--- NOTE | 2024-03-31 15:06 | BI_ITS ---
MAMMOGRAPHY - BILATERAL SCREENING REASON FOR EXAM: Female, 63 years old. Routine annual screening examination. PERTINENT HISTORY: Aunt with breast cancer. TECHNIQUE: Digital bilateral breast harpreet (3D mammographic acquisition) in the CC and MLO projections. 2-D mediolateral oblique (MLO) and craniocaudad (CC) views of both breasts were obtained. CAD: Full Field Digital Mammography with Computer Added Detection was performed. COMPARISON: Comparison is made with prior study dated December 14, 2022 and October 10, 2021. FINDINGS: Breast Composition: The breasts are heterogeneously dense, which may obscure small masses. Focal area of architectural distortion is seen in the upper aspect of the left breast on the mediolateral oblique view. This is faintly seen in the slightly lateral portion of the left breast on the craniocaudad view. Stable small benign-appearing bilateral axillary lymph nodes. No other significant abnormalities are identified. BI/SCRN MAMM (CAD)W/HARPREET BILAT IMPRESSION: Focal area of architectural distortion in the upper slightly lateral aspect of the left breast as described. The patient will be recalled for compression spot views and 90 degree lateral view. ASSESSMENT CATEGORY: BIRADS Category 0: Incomplete. Need additional imaging evaluation. A letter regarding these results will be sent to the patient by the facility within 30 days. Approximately 10% of breast cancers are not detected by mammography. A normal mammogram should not delay biopsy of a clinically suspicious abnormality. [id number] Electronically Signed: Jv Araya MD at 8:39 EDT ,
== END | disposition home or self-care (01) ==
LOC: OPBI 15:06
PROVIDERS: PCP Family Medicine; Referring Provider Family Medicine; Visit Provider Family Medicine
DX: Z12.31 Encounter for screening mammogram for malignant neoplasm of breast (principal); Z80.3 Family history of malignant neoplasm of breast
CPT/HCPCS: 77063; 77067

== ENCOUNTER → 2024-04-03 | Outpatient (CLI) | payer MEDICARE, OTHER, SELFPAY ==
--- NOTE | 2024-04-03 14:20 | US_ITS ---
STUDY: ULTRASOUND BREAST - LEFT REASON FOR EXAM: Female, 63 years old. Abnormal screening mammogram. TECHNIQUE: Axial and longitudinal images of the LEFT breast were performed with a high resolution ultrasound transducer. # OF IMAGES: 44 COMPARISON: Comparison is made with prior mammograms in earlier today and March 31, 2024. FINDINGS: LEFT Breast: The upper aspect of the left breast was examined with ultrasound. There is a 6 mm x 6 mm x 3 mm hypoechoic nodule at the 12:00 position of the breast at 4 cm from the nipple. Vascularity is seen. Tissue diagnosis recommended. There is a 4 mm x 4 mm x 2 mm cyst at the 12:00 position of the breast at 3 cm from the nipple. US/Breast Limited Unilateral IMPRESSION: 6 mm x 6 mm x 3 mm hypoechoic lesion with increased vascularity at the 12:00 position of the breast at 4 cm from the nipple. Biopsy recommended. ASSESSMENT CATEGORY: BIRADS Category 4: Suspicious - Biopsy Should Be Considered. A letter regarding these results will be sent to the patient by the facility within 30 days. Electronically Signed: Jv Araya MD at 7:39 EDT ,
--- NOTE | 2024-04-03 14:20 | BI_ITS ---
MAMMOGRAPHY - UNILATERAL DIAGNOSTIC: LEFT BREAST REASON FOR EXAM: Female, 63 years old. Abnormal screening mammogram. PERTINENT HISTORY: Aunt with breast cancer. TECHNIQUE: Compression spot views of the left breast in mediolateral leak and craniocaudad projections were obtained. CAD: Full Field Digital Mammography with Computer Added Detection was performed. COMPARISON: Comparison is made with prior study dated March 31, 2024. FINDINGS: Breast Composition: The breasts are heterogeneously dense, which may obscure small masses. There are no dominant masses or suspicious calcifications. The previously seen focal area of the architectural distortion is not seen as well at this time. It most likely represents superimposition of tissue. Correlation with targeted ultrasound recommended. No other significant abnormalities are identified. BI/DIAG MAMM W/CAD, UNILAT IMPRESSION: Negative unilateral diagnostic mammogram. Targeted sonographic correlation recommended. ASSESSMENT CATEGORY: BIRADS Category 0: Incomplete. Need additional imaging evaluation. A letter regarding these results will be sent to the patient by the facility within 30 days. Approximately 10% of breast cancers are not detected by mammography. A normal mammogram should not delay biopsy of a clinically suspicious abnormality. Electronically Signed: Jv Araya MD at 7:37 EDT ,
== END | disposition home or self-care (01) ==
LOC: OPBI 14:18
PROVIDERS: PCP Family Medicine; Referring Provider Family Medicine; Visit Provider Family Medicine
DX: R92.8 Other abnormal and inconclusive findings on diagnostic imaging of breast (principal)
CPT/HCPCS: 76642; 77065

== ENCOUNTER → 2024-04-15 | Outpatient (CLI) | payer MEDICARE, OTHER, SELFPAY ==
--- NOTE | 2024-04-15 12:27 | US_ITS ---
STUDY: ULTRASOUND BREAST - LEFT REASON FOR EXAM: Female, 63 years old. Patient is scheduled for left breast biopsy. TECHNIQUE: Axial and longitudinal images of the LEFT breast were performed with a high resolution ultrasound transducer. # OF IMAGES: 6 COMPARISON: Comparison is made with prior sonogram dated April 03, 2024. FINDINGS: LEFT Breast: No suspicious lesion is seen. Biopsy is not performed. US/Breast Limited Unilateral IMPRESSION: Biopsy not performed. No suspicious nodule is seen. ASSESSMENT CATEGORY: BIRADS Category 2: Benign. A letter regarding these results will be sent to the patient by the facility within 30 days. Electronically Signed: Jv Araya MD at 11:09 EDT ,
--- NOTE | 2024-04-15 13:18 | PN_ITS ---
Progress Note Patient is a 63-year-old female who was recently found to have an abnormality in the left breast at the 12 o'clock position on ultrasound. She presents today for biopsy of this lesion.. digital cartographic technician spent a considerable amount of time trying to recreate the abnormality originally seen. This was reproduced successfully however further investigation based on appearance as well as vascular flow seem to indicate this may be more of a lymph node or breast tissue rather than a true suspicious abnormality. These images obtained today were sent to the radiologist for further reevaluation. He agreed that this is likely not suspicious and does not warrant biopsy. This discussion was carried out in front of the patient and we discussed her options. She is okay with foregoing biopsy. We discussed the importance to continue with yearly mammography and monthly self examinations. All are in agreement with this plan. Follow-up with me will be as needed.
== END | disposition home or self-care (01) ==
LOC: US 12:27
PROVIDERS: PCP Family Medicine; Referring Provider Surgery; Visit Provider Surgery
DX: R92.8 Other abnormal and inconclusive findings on diagnostic imaging of breast (principal)
CPT/HCPCS: 76642

== ENCOUNTER → 2024-09-26 | Outpatient (CLI) | payer MEDICARE, OTHER, SELFPAY ==
[2024-09-26 13:16] LABS: Protein, Urine (Random) 24.5 mg/dL (0.0-12.0); Protein:Creat Ratio 99 mg/g CRE (0-200)
[2024-09-26 13:25] LABS: AST(SGOT) 21 U/L (<=31); Alanine Aminotransfer ALT/SGPT 17 U/L (<=34); Anion Gap 12 (5-15); BUN 14 mg/dL (4-19); BUN/Creat Ratio 18.2 RATIO (10-20); Calcium 9.5 mg/dL (7.6-11.0); Calcium,Total 9.5 mg/dL (7.6-11.0); Carbon Dioxide 23.7 mmol/L (21.0-32.0); Chloride 105 mmol/L (98-108); Creatinine, Serum 0.75 mg/dL (0.70-1.20); EST Glomerular Filtration Rate 87 (>60); Glucose 98 mg/dL (70-99); Sodium Level 141 mmol/L (133-145)
[2024-09-26 16:12] LABS: Cholesterol 140 mg/dL (<=200); High Density Lipoprotein 52 mg/dL; Low Density Lipoprotein Calc. 69 mg/dL; Triglycerides 97 mg/dL; Very Low Density Lipoprotein 19 mg/dL (5-40)
== END | disposition home or self-care (01) ==
LOC: MFPLAB 09:58
PROVIDERS: PCP Family Medicine; Referring Provider Family Medicine; Visit Provider Family Medicine
DX: I10 Essential (primary) hypertension (principal); M85.80 Other specified disorders of bone density and structure, unspecified site; E78.00 Pure hypercholesterolemia, unspecified
CPT/HCPCS: 36415; 80048; 80061; 82310; 82570; 84156; 84443; 84450; 84460

== ENCOUNTER 2025-05-25 07:46 | Emergency (ER) | payer MEDICARE, OTHER, SELFPAY ==
[2025-05-25] VITALS (10 sets, daily range): BP systolic 122–146; BP diastolic 64–87; PULSE 61–100; RESP 5–17; TEMP 36.6–36.8; O2SAT 96–99; BMI 30.6
--- NOTE | 2025-05-25 08:22 | EKG12_ITS ---
Test Reason : Blood Pressure : */* mmHG Vent. Rate : 62 BPM Atrial Rate : 62 BPM P-R Int : 206 ms QRS Dur : 78 ms QT Int : 390 ms P-R-T Axes : 55 63 37 degrees QTcB Int : 395 ms Normal sinus rhythm Low voltage QRS Borderline ECG Confirmed by JESSICA ZAMORA MD ([id number]), assignment desk editor ILIR LEUNG ([id number]) on 05/26/2025 12:16:10 PM Referred By: Confirmed By: JESSICA ZAMORA MD
--- NOTE | 2025-05-25 08:27 | RAD_ITS ---
PROCEDURE: CHEST 1 VIEW (PORTABLE) 05/25/2025 REASON FOR EXAM: CHEST PAIN TECHNIQUE: Frontal view of the chest. COMPARISON: May 24, 2020. FINDINGS: Hardware: EKG electrodes are seen. Heart: Heart size upper limits of normal. Lungs: The lungs are clear. Bones: Degenerative changes are identified within the thoracic spine. RAD/Chest 1 View (Portable) IMPRESSION: Heart size is upper limits of normal. Hyperinflation. The lungs are clear. Stable examination. Reading Location: [id number]
[2025-05-25 08:39] LABS: Hematocrit 40.6 % (37-47); Hemoglobin 13.8 g/dL (12.0-15.0); Immature Granulocytes Count 0.050 X10^3/uL (0.0-0.0); Mean Corp Hgb Conc 34.0 g/dL (32-36); Mean Corpuscular Volume 90.8 fL (81-99); Mean Platelet Vol. 10.3 fl (6.2-12.0); NRBC Flagged by Analyzer 0 % (0-5); Platelet Count 252 K/mm3 (150-450); RBC Distribution Width CV 12.9 % (11.6-14.6); RBC Distribution Width SD 42.9 fl (35.1-43.9); Red Blood Count 4.47 M/mm3 (4.2-5.4); White Blood Count 12.0 K/mm3 (4.4-11.0)
--- NOTE | 2025-05-25 08:51 | ED.VIS.CHEST ---
HPI History of Present Illness Chief Complaint: Chest Pain Detail of Chief Complaint: Chest pain and not feeling right Informant: patient Narrative Narrative: Patient presents to the emergency department complaint of some chest discomfort that she developed last evening. She had just finished eating and was sitting on the couch when she began just not feeling well and had some tightness or discomfort over her left chest. Patient laid on the floor and she thinks she eventually fell asleep but woke up about an hour later and felt fine. Patient does not have any heart history. She does not know if she was having anxiety possibly because her cousin recently as well as her dog. Patient also was told recently she needed a biopsy after a mammogram. Currently not having any chest pain. She denies exertional symptoms. There is a significant family history of heart disease and that her 1 brother in his 40s of a myocardial infarction and then had another brother in his 60s. [facility] Medical History (Updated 05/25/25 @ 11:[address] Musa Quinonez DO) Abnormal mammogram of left breast Hypertension Hyperlipidemia Chest pain, unspecified Home Medications Medication Instructions Recorded Last Taken Type atorvastatin 20 mg tablet 20 mg PO DAILY cholesterol 07/01/14 05/24/25 History multivitamin 1 tab PO DAILY supplement 05/24/20 05/24/25 History alendronate 70 mg tablet 70 mg PO QWEEK 04/07/24 05/18/25 History losartan 25 mg tablet 25 mg PO QDAY 04/07/24 05/25/25 History aspirin 81 mg tablet,delayed 162 mg PO DAILY PRN fever or pain 05/25/25 05/24/25 History release (Adult Low Dose Aspirin) metoprolol succinate 25 mg 12.5 mg PO Q12H 05/25/25 05/25/25 History tablet,extended release 24 hr Allergy/AdvReac Type Severity Reaction Status Date / Time No Known Allergies Allergy Verified 05/25/25 07:48 Family History Brother Asthma Arthritis Aunt Breast cancer Father Hypertension Mother Hypertension Surgical History History of excision of lesion History of dilation and curettage History of tubal ligation Social History Smoking Status: Never smoker alcohol intake: never substance use type: does not use ROS ROS ED Review of Systems ROS Unobtainable: other Constitutional Constitutional ED: Reports lethargy; Denies chills, fever(s), sweats or weight loss Eyes Eyes: Denies blurry vision, change in vision or diplopia ENT ENT ED: Denies rhinorrhea or sore throat Cardiovascular Cardiovascular: Reports chest pain; Denies orthopnea or racing heartbeat Respiratory/Chest Respiratory/Chest: Denies cough, dyspnea, dyspnea on exertion, orthopnea or sputum Gastrointestinal Gastrointestinal: Denies abdominal pain, diarrhea, nausea or vomiting Genitourinary Genitourinary ED: Denies dysuria, hematuria or urinary frequency Musculoskeletal Musculoskeletal: Denies arthralgias, back pain, myalgias or neck pain Integumentary Denies abscess, Abrasions or rash Neurologic Neurologic: Denies headache(s) or weakness Psychiatric Psychiatric: Denies anxiety, depression or suicidal thoughts Endocrine Endocrinology: Denies polydipsia, polyphagia or polyuria Hematologic/Lymphatic Hematologic/Lymphatic: Denies easy bleeding, easy bruising or lymphadenopathy Allergic/Immunologic Allergic/Immunologic ED: Denies mouth swelling, tongue swelling or urticaria EXAM Physical Exam Const Vital Signs: 05/25/25 07:48 05/25/25 08:22 05/25/25 08:30 Temperature 98.3 F Temperature Source Oral Pulse Rate 85 71 Respiratory Rate 16 15 Blood Pressure 145/87 H Blood Pressure Mean 106 Pulse Ox 97 99 97 Oxygen Delivery Method Room Air Room Air 05/25/25 08:33 05/25/25 09:00 05/25/25 09:45 Temperature Temperature Source Pulse Rate 68 64 100 Respiratory Rate 17 5 L 10 L Blood Pressure 146/75 H 142/77 H 127/75 H Blood Pressure Mean 95 96 91 Pulse Ox 98 97 96 Oxygen Delivery Method 05/25/25 10:00 05/25/25 10:30 05/25/25 11:00 Temperature Temperature Source Pulse Rate 66 63 61 Respiratory Rate 11 L 11 L 12 Blood Pressure 134/74 H 141/72 H 141/65 H Blood Pressure Mean 93 90 86 Pulse Ox 98 98 97 Oxygen Delivery Method Positive well nourished and well developed General Appearance ED: well developed and NAD HEENT Reports TM's clear and moist mucous membranes normocephalic and atraumatic; Negative for trauma or tenderness Tympanic Membrane ED: Yes TM's clear Eyes PERRL and EOMs intact bilaterally General Eye ED: Negative for pale conjunctiva or scleral icterus Neck no lymphadenopathy, supple and no JVD General: Negative for tenderness Chest Wall inspection of chest normal and palpation of chest normal Chest: Negative for tenderness Resp normal respiratory effort and clear to auscultation bilaterally Effort and Inspection: Negative for respiratory distress or pain with movement Auscultation: Negative for rhonchi, wheezes or diminished lung sounds Cardio regular rate, regular rhythm, S1 normal heart sound, S2 normal heart sound and no murmurs Peripheral Pulses: pulses 2+ throughout GI normal to inspection, nondistended, normoactive bowel sounds, soft to palpation, non-tender, non-distended and no masses Back/Spine no CVA tenderness and no thoracic nor lumbar tenderness Extremity normal to inspection General Extremety ED: Negative for edema General Extremity: Negative for edema Neuro oriented x3, CN's II-XII intact bilaterally, no sensory deficits noted and gait normal Sensorium / Orientation: awake, alert, oriented to person, oriented to place and oriented to time Motor Exam: strength 5/5 throughout and strength abnormal Psych mental status grossly normal Skin no rashes or lesions noted and no wounds Heart Score History: Slightly/Non-Suspicious ECG: Normal Age: >/= 65 years Risk Factors: 1 or 2 Risk Factors Troponin: </= Normal Limit Score: 3 MDM MDM MDM Narrative Medical decision making narrative: Patient presents with vague complaint of some chest discomfort. She has had increased stressors in her life. Clinically she looks well. Currently not having chest pain. EKG obtained arrival showed a sinus rhythm with rate of 62 bpm with no acute ST segment changes. CBC with a showed a slightly elevated white count 12.0 with hemoglobin of 13.8 and platelet count of 252. Chemistries unremarkable. First troponin was 6 and 2-hour delta troponin was less than 6. Patient has had no exertional symptoms at home. Low suspicion for acute coronary syndrome. Patient has a heart score of 3. I feel she can have outpatient follow-up. Recommend she return if exertional symptoms, worsening chest pain or shortness of breath, or condition worsen anyway. Lab Data Attestation: I reviewed the patient's lab results. Labs: Laboratory Results - last 24 hr 05/25/25 05/25/25 08:30 10:29 WBC 12.0 H RBC 4.47 Hgb 13.8 Hct 40.6 MCV 90.8 MCH 30.9 MCHC 34.0 RDW Std Deviation 42.9 RDW Coeff of Syeda 12.9 Plt Count 252 MPV 10.3 Immature Gran % (Auto) 0.400 Neut % (Auto) 78.4 H Lymph % (Auto) 15.9 L [place] % (Auto) 4.5 Eos % (Auto) 0.4 Baso % (Auto) 0.4 Absolute Neuts (auto) 9.4 H Absolute Lymphs (auto) 1.91 Nucleated RBC % 0 Sodium 141 Potassium 3.7 Chloride 106 Carbon Dioxide 22.2 Anion Gap 12 BUN 14 Creatinine 0.69 L Estim Creat Clear Calc 73.80 Est GFR (MDRD) Non-Af 96 BUN/Creatinine Ratio 20.4 H Glucose 109 H Calcium 9.3 Troponin T High Sens 6 Troponin T Hi Sens 2 Hr < 6 Radiography Diagnostic Testing: Clinical Impression(s) from Imaging Studies Chest X-Ray 05/25/25 08:27 IMPRESSION: Heart size is upper limits of normal. Hyperinflation. The lungs are clear. Stable examination. Reading Location: [id number] view chest x-ray obtained interpreted by myself as no evidence of infiltrate or pneumothorax or acute disease process. Radiology in agreement. EKG Initial EKG: Attestation: I personally reviewed and interpreted this EKG as follows: Comments: Normal sinus rhythm with ventricular rate of of 62 bpm with no acute ST segment change Discharge Plan Triage Chief Complaint: Chest Pain Other Complaint: General Illness ED Provider: Musa Quinonez Dx/Rx/DC Orders Clinical Impression: Chest pain, Anxiety Instructions: ED Anxiety Reaction, ED Chest Pain, Uncertain Cause Prescriptions: No Action losartan 25 mg tablet 25 mg PO QDAY alendronate 70 mg tablet 70 mg PO QWEEK atorvastatin 20 MG tablet 20 mg PO DAILY multivitamin 1 EACH tablet 1 tab PO DAILY metoprolol succinate 25 mg tablet extended release 24 hr 12.5 mg PO Q12H aspirin [Adult Low Dose Aspirin] 81 mg tablet,delayed release (DR/EC) 162 mg PO DAILY PRN (Reason: fever or pain) Primary Care Provider: Indy Solis Referrals: Indy Solis MD [Primary Care Provider, Family Practice] - 3-5 Days Print Language: [place] Disposition Disposition: Home, Self Care
[2025-05-25 09:10] LABS: Anion Gap 12 (5-15); BUN 14 mg/dL (4-19); BUN/Creat Ratio 20.4 RATIO (10-20); Calcium,Total 9.3 mg/dL (7.6-11.0); Carbon Dioxide 22.2 mmol/L (21.0-32.0); Chloride 106 mmol/L (98-108); Estimated Creatinine Clearance 73.80 ml/min (50-250); Glucose 109 mg/dL (70-99); Potassium 3.7 mmol/L (3.3-5.1); Troponin T High Sensitivity 6 ng/L (<=14)
[2025-05-25 11:23] LABS: Troponin T High Sens 2 HR < 6 ng/L (<=14)
== END 2025-05-25 11:56 | disposition home or self-care (01) ==
PROVIDERS: Emergency Provider Emergency Medicine; PCP Family Medicine; Visit Provider Emergency Medicine
DX: R07.9 Chest pain, unspecified (principal); F41.9 Anxiety disorder, unspecified; I10 Essential (primary) hypertension; E78.5 Hyperlipidemia, unspecified; Z79.899 Other long term (current) drug therapy; Z79.82 Long term (current) use of aspirin; Z98.51 Tubal ligation status
CPT/HCPCS: 71045; 80048; 84484; 85025; 93005; 99285; A4216